=== PATIENT | female | born 1975 | race Caucasian/White ===

== ENCOUNTER → 2021-04-11 | Outpatient (CLI) | payer BC ==
--- NOTE | 2021-04-12 09:27 | US ---
EXAMINATION TYPE: US thyroid st tissue head/neck DATE OF EXAM: 04/11/2021 COMPARISON: NONE CLINICAL HISTORY: E04.1 Nontoxic single thyroid nodule. nodule seen on MRI, normal labs, not on meds GLAND SIZE: Right Lobe: 5.5 x 1.4 x 1.9 cm Overall Parenchyma: heterogenous Left Lobe: 5.3 x 1.5 x 1.8 cm Overall Parenchyma: homogeneous Isthmus Thickness: 0.3 cm NODULES RIGHT: # of nodules measured on right: 1 1. 1.5 X 1.2 x 0.9 cm, mid, solid or almost completely solid, isoechoic nodule, which is wider than tall, with ill-defined margins, without echogenic foci. Prior size: COLOR BLENDER LEFT: # of nodules measured on left: 0 ISTHMUS: # of nodules measured in the isthmus: 0 Bilateral neck scanned, no evidence of lymphadenopathy. Slightly heterogeneous right thyroid lobe. Thyroid overall is normal in size. Poorly visualized right thyroid nodule is mildly suspicious, TR 3 lesion. IMPRESSION: As above. 2017 ACR TI-RADS LEVEL: TR-RADS 3 - Mildly Suspicious: Follow if = or > 1.5 cm, at 1, 3, and 5 years. *Highest TI-RADS level nodule reported
== END | disposition home or self-care (01) ==
LOC: RADUSWWP 16:54
PROVIDERS: ATTEND Family Medicine
DX: E04.1 Nontoxic single thyroid nodule (principal)
CPT/HCPCS: 76536

== ENCOUNTER 2021-05-13 12:34 | Day surgery (SDC) | payer BC ==
[2021-05-13 13:00] VITALS: TEMP 98.2
[2021-05-13 14:14] VITALS: BP 123/73; PULSE 69; RESP 18
--- NOTE | 2021-05-13 14:14 | US ---
EXAMINATION TYPE: US FNA first lesion DATE OF EXAM: 05/13/2021 COMPARISON: NONE HISTORY: Thyroid nodule, family history of thyroid cancer. Maximal barrier technique was utilized. After informed consent, skin overlying the lesion was locali zed with ultrasound and the overlying skin prepped and draped. Ultrasound was utilized using sterile technique. Lidocaine was used for local anesthesia. Five passes with a 25-gauge needle were made int o the right lobe thyroid nodule and aspirated specimen was submitted to cytology. Following the proc edure hemostasis achieved. No immediate complication. The patient discharged in stable condition. IMPRESSION: STATUS POST ULTRASOUND GUIDED FINE NEEDLE ASPIRATION OF THYROID NODULE, PATHOLOGY IS PEND ING. THIS PROCEDURE WAS PERFORMED BY THE UNDERSIGNED.
== END 2021-05-13 14:05 | disposition home or self-care (01) ==
LOC: RADPROMAIN 12:34
PROVIDERS: ATTEND Otolaryngology
DX: E04.1 Nontoxic single thyroid nodule (principal); Z88.5 Allergy status to narcotic agent
CPT/HCPCS: 10005; 88173; 88305

== ENCOUNTER 2021-10-31 15:41 | Emergency (ER) | payer BC ==
[2021-10-31 15:55] VITALS: RESP 18; TEMP 97.7
[2021-10-31 17:25] LABS: Basophils % (A) 0 %; Eosinophils # (A) 0.1 k/uL (0-0.7); Eosinophils % (A) 1 %; HCT 47.9 % (34.0-46.0); HGB 15.8 gm/dL (11.4-16.0); Lymphocytes # (A) 0.5 k/uL (1.0-4.8); Lymphocytes % (A) 7 %; MCH 29.5 pg (25.0-35.0); MCHC 32.9 g/dL (31.0-37.0); MCV 89.7 fL (80.0-100.0); Mean Platelet Volume 7.2; Monocytes # (A) 0.3 k/uL (0-1.0); Monocytes % (A) 4 %; Neutrophils # (A) 6.8 k/uL (1.3-7.7); Neutrophils % (A) 87 %; Platelet Count 304 k/uL (150-450); RBC 5.34 m/uL (3.80-5.40); RDW 11.9 % (11.5-15.5); WBC 7.8 k/uL (3.8-10.6)
[2021-10-31 17:35] LABS: ALT 14 U/L (4-34); AST 24 U/L (14-36); African American GFR (CKD) >90 (>60 ml/min/1.73 sqM); Albumin 3.8 g/dL (3.5-5.0); Alkaline Phosphatase 65 U/L (38-126); Anion Gap 9 mmol/L; Blood Urea Nitrogen 16 mg/dL (7-17); Calcium 8.6 mg/dL (8.4-10.2); Carbon Dioxide 18 mmol/L (22-30); Chloride 109 mmol/L (98-107); Glucose 92 mg/dL (74-99); Lipase 104 U/L (23-300); Non-African American GFR(CKD) 87 (>60 ml/min/1.73 sqM); Potassium 3.9 mmol/L (3.5-5.1); Sodium 136 mmol/L (137-145); Total Bilirubin 0.4 mg/dL (0.2-1.3); Total Protein 6.7 g/dL (6.3-8.2)
--- NOTE | 2021-10-31 17:43 | ED ---
General Adult HPI - General Chief complaint: Abdominal Pain Stated complaint: vomiting, abd pain, confusion Time Seen by Provider: 10/31/21 16:42 Source: patient Mode of arrival: ambulatory Limitations: no limitations - History of Present Illness Initial comments: Dictation was produced using farmho[employer] dictation software. please excuse any grammatical, word or spelling errors. Chief Complaint: 46 yo female presents to emergency Department with right lower quadrant abdominal pain History of Present Illness: A 46-year-old female she has no past medical history of abdominal surgery. She has no significant past medical history. She states her last 48 hours she developed nausea vomiting diarrhea and abdominal pain. She states that her symptoms began with nonbilious not bloody diarrhea. She also is experiencing midline abdominal pain at that time. Today her symptoms moved down to the right lower quadrant. She has no history of abdominal surgery. She still has her appendix. She does feel chills but denies any fevers. States that her emesis is nonbloody and nonbilious. The ROS documented in this emergency department record has been reviewed and confirmed by me. Those systems with pertinent positive or negative responses have been documented in the HPI. All other systems are other negative and/or noncontributory. PHYSICAL EXAM: General Impression: Alert and oriented x3, not in acute distress HEENT: Normocephalic atraumatic, extra-ocular movements intact, pupils equal and reactive to light bilaterally, mucous membranes moist. Cardiovascular: Heart regular rate and rhythm Chest: Able to complete full sentences, no retractions, no tachypnea Abdomen: abdomen soft, palpatory tenderness at McBurney's point, non-distended, no organomegaly Musculoskeletal: Pulses present and equal in all extremities, no peripheral edema Motor: no focal deficits noted Neurological: CN II-XII grossly intact, no focal motor or sensory deficits noted Skin: Intact with no visualized rashes Psych: Normal affect and mood ED course: 46-year-old female presents to the emergency Department with 48 hours of GI symptoms. Vital signs upon arrival shows heart rate of 122, rest of vital signs within acceptable limits. Clinical presentation concerning for acute appendicitis. Lavatory evaluation obtained. CBC unremarkable. Metabolic panel shows mild acidosis. Patient is 4+ ketones. No signs of infection. No leukocytosis. Computed tomography scan of the abdomen and pelvis shows findings to suggest enteritis. Appendix is visualized and nonacute. Patient given IV fluids and reports feeling much better. Clinical presentation likely secondary to enteritis. Patient advised to go home rest and hydrate herself. Advised follow-up with primary care doctor. - Related Data Home Medications Medication Instructions Recorded Confirmed Multivitamins, Thera [Multivitamin 1 tab PO DAILY 05/05/21 10/31/21 (formulary)] Turmeric Root Extract [Turmeric] 500 mg PO DAILY 05/05/21 10/31/21 buPROPion XL [Wellbutrin XL] 150 mg PO DAILY 10/31/21 10/31/21 Previous Rx's Medication Instructions Recorded Ondansetron Odt [Zofran Odt] 4 mg PO Q8HR PRN #12 tab 10/31/21 Allergies Allergy/AdvReac Type Severity Reaction Status Date / Time meperidine [From Demerol] Allergy Nausea & Verified 10/31/21 18:02 Vomiting Review of Systems ROS Statement: Those systems with pertinent positive or pertinent negative responses have been documented in the HPI. ROS Other: All systems not noted in ROS Statement are negative. Past Medical History Past Medical History: Osteoarthritis (OA), Thyroid Disorder Additional Past Medical History / Comment(s): thyroid nodules, arthiritis in neck and knees, chronic kidney stones History of Any Multi-Drug Resistant Organisms: None Reported Additional Past Surgical History / Comment(s): kidney stone removal Past Anesthesia/Blood Transfusion Reactions: No Reported Reaction Additional Past Anesthesia/Blood Transfusion Reaction / Comment(s): no previous blood transfusion Past Psychological History: Anxiety, Depression Smoking Status: Never smoker Past Alcohol Use History: Occasional Past Drug Use History: None Reported - Past Family History Mother Family Medical History: Cancer Additional Family Medical History / Comment(s): neuroendocrine tumor General Exam Limitations: no limitations Course Vital Signs 10/31/21 15:52 Temperature 97.7 F Pulse Rate 122 H Respiratory 18 Rate Blood Pressure 130/84 O2 Sat by Pulse 97 Oximetry Medical Decision Making - Lab Data Result diagrams: 10/31/21 17:14 10/31/21 17:14 Lab Results 10/31/21 10/31/21 10/31/21 Range/Units 17:14 17:14 17:36 WBC 7.8 (3.8-10.6) k/uL RBC 5.34 (3.80-5.40) m/uL Hgb 15.8 (11.4-16.0) gm/dL Hct 47.9 H (34.0-46.0) % MCV 89.7 (80.0-100.0) fL MCH 29.5 (25.0-35.0) pg MCHC 32.9 (31.0-37.0) g/dL RDW 11.9 (11.5-15.5) % Plt Count 304 (150-450) k/uL MPV 7.2 Neutrophils % 87 % Lymphocytes % 7 % Monocytes % 4 % Eosinophils % 1 % Basophils % 0 % Neutrophils # 6.8 (1.3-7.7) k/uL Lymphocytes # 0.5 L (1.0-4.8) k/uL Monocytes # 0.3 (0-1.0) k/uL Eosinophils # 0.1 (0-0.7) k/uL Basophils # 0.0 (0-0.2) k/uL Sodium 136 L (137-145) mmol/L Potassium 3.9 (3.5-5.1) mmol/L Chloride 109 H (98-107) mmol/L Carbon Dioxide 18 L (22-30) mmol/L Anion Gap 9 mmol/L BUN 16 (7-17) mg/dL Creatinine 0.82 (0.52-1.04) mg/dL Est GFR (CKD-EPI)AfAm >90 (>60 ml/min/1.73 sqM) Est GFR (CKD-EPI)NonAf 87 (>60 ml/min/1.73 sqM) Glucose 92 (74-99) mg/dL Calcium 8.6 (8.4-10.2) mg/dL Total Bilirubin 0.4 (0.2-1.3) mg/dL AST 24 (14-36) U/L ALT 14 (4-34) U/L Alkaline Phosphatase 65 (38-126) U/L Total Protein 6.7 (6.3-8.2) g/dL Albumin 3.8 (3.5-5.0) g/dL Lipase 104 (23-300) U/L Urine Color Urine Appearance (Clear) Urine pH (5.0-8.0) Ur Specific [place] (1.001-1.035) Urine Protein (Negative) Urine Glucose (UA) (Negative) Urine Ketones (Negative) Urine Blood (Negative) Urine Nitrite (Negative) Urine Bilirubin (Negative) Urine Urobilinogen (<2.0) mg/dL Ur Leukocyte Esterase (Negative) Urine RBC (0-5) /hpf Urine WBC (0-5) /hpf Ur Squamous Epith Cells (0-4) /hpf Urine Bacteria (None) /hpf Urine Mucus (None) /hpf Urine HCG, Qual Not Detected (Not Detectd) 10/31/21 Range/Units 17:40 WBC (3.8-10.6) k/uL RBC (3.80-5.40) m/uL Hgb (11.4-16.0) gm/dL Hct (34.0-46.0) % MCV (80.0-100.0) fL MCH (25.0-35.0) pg MCHC (31.0-37.0) g/dL RDW (11.5-15.5) % Plt Count (150-450) k/uL MPV Neutrophils % % Lymphocytes % % Monocytes % % Eosinophils % % Basophils % % Neutrophils # (1.3-7.7) k/uL Lymphocytes # (1.0-4.8) k/uL Monocytes # (0-1.0) k/uL Eosinophils # (0-0.7) k/uL Basophils # (0-0.2) k/uL Sodium (137-145) mmol/L Potassium (3.5-5.1) mmol/L Chloride (98-107) mmol/L Carbon Dioxide (22-30) mmol/L Anion Gap mmol/L BUN (7-17) mg/dL Creatinine (0.52-1.04) mg/dL Est GFR (CKD-EPI)AfAm (>60 ml/min/1.73 sqM) Est GFR (CKD-EPI)NonAf (>60 ml/min/1.73 sqM) Glucose (74-99) mg/dL Calcium (8.4-10.2) mg/dL Total Bilirubin (0.2-1.3) mg/dL AST (14-36) U/L ALT (4-34) U/L Alkaline Phosphatase (38-126) U/L Total Protein (6.3-8.2) g/dL Albumin (3.5-5.0) g/dL Lipase (23-300) U/L Urine Color Yellow Urine Appearance Clear (Clear) Urine pH 5.5 (5.0-8.0) Ur Specific [place] 1.033 (1.001-1.035) Urine Protein 1+ H (Negative) Urine Glucose (UA) Negative (Negative) Urine Ketones 4+ H (Negative) Urine Blood Negative (Negative) Urine Nitrite Negative (Negative) Urine Bilirubin 1+ H (Negative) Urine Urobilinogen 2.0 (<2.0) mg/dL Ur Leukocyte Esterase Trace H (Negative) Urine RBC 2 (0-5) /hpf Urine WBC 4 (0-5) /hpf Ur Squamous Epith Cells 4 (0-4) /hpf Urine Bacteria Occasional H (None) /hpf Urine Mucus Moderate H (None) /hpf Urine HCG, Qual (Not Detectd) Disposition Clinical Impression: Enteritis Disposition: HOME SELF-CARE Condition: Fair Instructions (If sedation given, give patient instructions): Enteritis (ED) Prescriptions: Ondansetron Odt [Zofran Odt] 4 mg PO Q8HR PRN #12 tab PRN Reason: Nausea Is patient prescribed a controlled substance at d/c from ED?: No Referrals: David Parry MD [Primary Care Provider] - 1-2 days
[2021-10-31 17:47] LABS: Appearance,Urine Clear (Clear); Bacteria,Urine Occasional /hpf; Bilirubin,Urine 1+ (Negative); Blood,Urine Negative (Negative); Color,Urine Yellow; Glucose,Urine (UA) Negative (Negative); Ketones,Urine 4+ (Negative); Leukocyte Esterase,Urine Trace (Negative); Mucus,Urine Moderate /hpf; Nitrite,Urine Negative (Negative); PH, Urine 5.5 (5.0-8.0); Protein,Urine 1+ (Negative); RBC,Urine 2 /hpf (0-5); Specific Gravity,Urine 1.033 (1.001-1.035); Squamous Epithelial Cell,Urine 4 /hpf (0-4); WBC,Urine 4 /hpf (0-5)
--- NOTE | 2021-10-31 19:12 | CT ---
EXAMINATION TYPE: CT abdomen pelvis w con CT DLP: 1188.7 mGycm, Automated exposure control for dose reduction was used. DATE OF EXAM: 10/31/2021 6:43 PM COMPARISON: None CLINICAL INDICATION:Female, 46 years old with history of Abd pain and vomiting x 2 days; Abd pain and vomiting x 2 days TECHNIQUE: Standard CT of the abdomen and pelvis following the administration of 100 cc of Isovue 3 00 IV contrast material. Coronal and sagittal reformats were performed. FINDINGS: LOWER CHEST: Unremarkable ABDOMEN LIVER: Diffusely hypoattenuating parenchyma. GALLBLADDER AND BILE DUCTS: Unremarkable. PANCREAS: Unremarkable. SPLEEN: Unremarkable. ADRENAL GLANDS: Unremarkable. KIDNEYS AND URETERS: No evidence of hydronephrosis or renal calculus. The ureters are unremarkable. Level renal cysts measuring up to 20 mm on the left and 19 mm on the right. PELVIS BLADDER: Unremarkable REPRODUCTIVE: Right hyperemic graafian follicle. ABDOMEN & PELVIS STOMACH AND BOWEL: There is enlargement of the vasa recta of the jejunum with multiple mesenteric lym ph nodes which are prominent. No evidence of bowel obstruction. Appendix is visualized and within nor mal limits. PERITONEUM: Trace fluid is seen within the pelvis, no evidence of pneumoperitoneum. VASCULATURE: No evidence of aortic aneurysm. Engorgement of the vasa recta as described above. MUSCULOSKELETAL: No acute osseous abnormalities. LYMPH NODES: No gross evidence for lymphadenopathy. Prominent lymph nodes throughout the mesentery wh ich are nonenlarged. SOFT TISSUE/ABDOMINAL WALL: Unremarkable IMPRESSION: Vasa recta engorgement prominent mesenteric lymph nodes predominantly involving the jejunum suspiciou s for underlying enteritis. No other acute process within the abdomen to explain the patient's sympto ms.
[2021-10-31] MEDS ORDERED: SODIUM CHLORIDE 0.9% 1,000 ML IV STA (19:16)
[2021-10-31] MEDS ORDERED: MORPHINE SULFATE 4 MG/ML SYRINGE IV STA (19:16)
[2021-10-31] MEDS ORDERED: KETOROLAC 15 MG/ML 1 ML VIAL IVP STA (20:00)
[2021-10-31] MEDS ORDERED: ONDANSETRON 4 MG ODT STARTER PACK 2 TAB BTL PO STA (20:36)
[2021-10-31 21:20] VITALS: BP 120/78; PULSE 88
== END 2021-10-31 21:20 | disposition home or self-care (01) ==
LOC: EC 15:41
DX: K52.9 Noninfective gastroenteritis and colitis, unspecified (principal); E87.2 Acidosis; F32.A Depression, unspecified; F41.9 Anxiety disorder, unspecified; M19.90 Unspecified osteoarthritis, unspecified site; Z79.899 Other long term (current) drug therapy; Z88.5 Allergy status to narcotic agent
CPT/HCPCS: 36415; 80053; 83690; 85025; 81001; 81025; 74177; 99284; 96374; 96361 ×2; J1885; S0119; Q9967

== ENCOUNTER → 2022-02-16 | Outpatient (CLI) | payer BC ==
--- NOTE | 2022-02-17 07:10 | US ---
EXAMINATION TYPE: US thyroid st tissue head/neck DATE OF EXAM: 02/16/2022 COMPARISON: 04/11/21 CLINICAL HISTORY: E04.1 THYROID NODULE. Thyroid nodule. FNA done, came back benign. GLAND SIZE: Right Lobe: 5.6 x 2.2 x 1.8 cm Overall Parenchyma: homogenous Left Lobe: 5.3 x 1.8 x 1.6 cm Overall Parenchyma: homogeneous Isthmus Thickness: 0.42 cm NODULES RIGHT: # of nodules measured on right: 1 1. 1.5 X 1.3 x 0.9 cm, upper mid, solid or almost completely solid, isoechoic nodule, which is wide r than tall, with ill-defined margins, without echogenic foci. Prior size: 1.5 x 1.2 x 0.9 cm LEFT: # of nodules measured on left: 0 ISTHMUS: # of nodules measured in the isthmus: 0 Bilateral neck scanned, no evidence of lymphadenopathy. IMPRESSION: 1. Stable nonspecific solid nodule right thyroid lobe. 2. Glandular enlargement
== END | disposition home or self-care (01) ==
LOC: RADUSWWP 16:50
PROVIDERS: ATTEND Otolaryngology
DX: E04.1 Nontoxic single thyroid nodule (principal)
CPT/HCPCS: 76536

== ENCOUNTER 2022-04-06 09:31 | Emergency (ER) | payer OTHER, BC ==
[2022-04-06 09:50] VITALS: RESP 18
--- NOTE | 2022-04-06 10:36 | XR ---
EXAMINATION TYPE: XR chest 2V DATE OF EXAM: 04/06/2022 COMPARISON: NONE TECHNIQUE: PA and lateral views submitted. HISTORY: Pain FINDINGS: The lungs are clear and there is no pneumothorax, pleural effusion, or focal pneumonia. IMPRESSION: 1. No acute process.
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
[2022-04-06 11:14] VITALS: BP 123/78; PULSE 80; TEMP 98
== END 2022-04-06 11:13 | disposition home or self-care (01) ==
LOC: EC 09:31
DX: R07.89 Other chest pain (principal); M79.602 Pain in left arm; M19.90 Unspecified osteoarthritis, unspecified site; E07.9 Disorder of thyroid, unspecified; Z88.6 Allergy status to analgesic agent; V89.2XXA Person injured in unspecified motor-vehicle accident, traffic, initial encounter
CPT/HCPCS: 71046; 72125; 99284; 99285

== ENCOUNTER → 2023-09-02 | Outpatient (CLI) | payer BC ==
--- NOTE | 2023-09-03 12:58 | US ---
EXAMINATION TYPE: US thyroid st tissue head/neck DATE OF EXAM: 09/02/2023 COMPARISON: 09/11/2022 CLINICAL INDICATION: Female, 48 years old with history of E04.1 NONTOXIC SINGLE THYROID NODULE; GLAND SIZE: Right Lobe: 5.8 x 1.6 x 1.9 cm Overall Parenchyma: homogeneous Left Lobe: 5.8 x 1.7 x 1.8 cm Overall Parenchyma: homogeneous Isthmus Thickness: 0.3 cm NODULES RIGHT: # of nodules measured on right: 1 1. 1.5 X 0.7 x 1.3 cm, mid, solid or almost completely solid, isoechoic TR3 nodule, which is wider than tall, with ill-defined margins, without echogenic foci. Prior size: 1.7 x 0.9 x 1.3 cm LEFT: # of nodules measured on left: 0 ISTHMUS: # of nodules measured in the isthmus: 0 Bilateral neck scanned, no evidence of lymphadenopathy. IMPRESSION: 1. Mild thyromegaly. 2. Solitary solid nodule right thyroid lobe (TR3) measures 1.5 cm versus 1.7 cm, previously. 2017 ACR TI-RADS LEVEL: TR-RADS 3 - Mildly Suspicious: Follow if > 1.5 cm, FNA if > 2.5 cm *Highest TI-RADS level nodule reported
== END | disposition home or self-care (01) ==
LOC: RADUSWWP 16:14
PROVIDERS: ATTEND Otolaryngology
DX: E04.1 Nontoxic single thyroid nodule (principal)
CPT/HCPCS: 76536

== ENCOUNTER 2023-10-20 20:25 | Emergency (ER) | payer BC ==
[2023-10-20 20:55] VITALS: TEMP 98.1
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
[2023-10-20] MEDS: KETOROLAC 15 MG/ML 1 ML VIAL IVP STA (21:31)
[2023-10-20] MEDS: SODIUM CHLORIDE 0.9% 1,000 ML IV STA (21:31)
[2023-10-20] MEDS: ONDANSETRON 4 MG/2 ML VIAL IVP STA (21:32)
[2023-10-20] MEDS: HYDROmorphone 0.5 MG/0.5 ML SYRINGE IVP STA (21:32)
[2023-10-20 21:48] LABS: Basophils % (A) 0 %; Eosinophils # (A) 0.1 k/uL (0-0.7); Eosinophils % (A) 1 %; HCT 42.3 % (34.0-46.0); HGB 13.9 gm/dL (11.4-16.0); Lymphocytes # (A) 1.5 k/uL (1.0-4.8); Lymphocytes % (A) 12 %; MCH 29.5 pg (25.0-35.0); MCV 89.4 fL (80.0-100.0); Mean Platelet Volume 7.7; Monocytes # (A) 0.3 k/uL (0-1.0); Monocytes % (A) 3 %; Neutrophils # (A) 10.6 k/uL (1.3-7.7); Neutrophils % (A) 83 %; Platelet Count 362 k/uL (150-450); RBC 4.73 m/uL (3.80-5.40); RDW 12.1 % (11.5-15.5); WBC 12.7 k/uL (3.8-10.6)
[2023-10-20 21:56] LABS: ALT 15 U/L (4-34); AST 24 U/L (14-36); African American GFR (CKD) >90 (>60 ml/min/1.73 sqM); Albumin 4.2 g/dL (3.5-5.0); Alkaline Phosphatase 81 U/L (38-126); Anion Gap 9 mmol/L; Blood Urea Nitrogen 12 mg/dL (7-17); Carbon Dioxide 20 mmol/L (22-30); Chloride 109 mmol/L (98-107); Glucose 112 mg/dL (74-99); Non-African American GFR(CKD) >90 (>60 ml/min/1.73 sqM); Potassium 4.1 mmol/L (3.5-5.1); Sodium 138 mmol/L (137-145); Total Bilirubin 0.6 mg/dL (0.2-1.3); Total Protein 6.9 g/dL (6.3-8.2)
--- NOTE | 2023-10-20 22:54 | CT ---
EXAM: CT Head Without Intravenous Contrast CLINICAL HISTORY: ITS.REASON CT Reason: NO, N/V, rhinorrhea when leaning forward TECHNIQUE: Axial computed tomography images of the head/brain without intravenous contrast. CTDI is 49.1 mGy and DLP is 1149 mGy-cm. This CT exam was performed using one or more of the following dose reduction techniques: automated exposure control, adjustment of the mA and/or kV according to patient size, and/or use of iterative reconstruction technique. COMPARISON: No relevant prior studies available. FINDINGS: No acute intracranial hemorrhage. No midline shift or mass effect. The territorial hagen-white matter differentiation is maintained throughout. The ventricles and sulci are commensurate with age. The visualized orbits appear grossly unremarkable. The calvarium is intact. The visualized paranasal sinuses and mastoid air cells are grossly clear. IMPRESSION: No acute intracranial hemorrhage, midline shift, or mass effect.
[2023-10-21 00:52] VITALS: BP 150/90; PULSE 67; RESP 16
== END 2023-10-21 00:18 | disposition home or self-care (01) ==
LOC: EC 20:25
DX: R51.9 Headache, unspecified (principal); D72.819 Decreased white blood cell count, unspecified; Z11.52 Encounter for screening for COVID-19; Z88.5 Allergy status to narcotic agent
CPT/HCPCS: 99284; 96374; 96375 ×2; 96361; 36415; 80053; 85025; 87636; 70450; J2405; J1885; J1170

== ENCOUNTER → 2024-01-25 | Outpatient (CLI) | payer BC ==
--- NOTE | 2024-02-02 08:40 | MM ---
Reason for Exam: Screening (asymptomatic). Last mammogram was performed 4 year(s) and 0 month(s) ago. Patient History: Menarche at age 14. Patient has no children. Premenopausal. Maternal aunt had breast cancer at or over age 50. Maternal grandmother had breast cancer under age 50. Last menstrual period: 01/22/2024 Risk Values: Ebony 5 year model risk: 0.9%. NCI Lifetime model risk: 10.5%. Prior Study Comparison: No prior studies available for comparison. Tissue Density: The breasts are extremely dense, which lowers the sensitivity of mammography. Findings: Analyzed By CAD. There is no suspicious group of microcalcifications or new suspicious mass in either breast. Benign calcifications. Overall Assessment: Benign, BI-RAD 2 Management: Screening Mammogram of both breasts in 1 year. . Patient should continue monthly self-breast exams. A clinical breast exam by your physician is recommended on an annual basis. This exam should not preclude additional follow-up of suspicious palpable abnormalities. Note on Ebony scores and lifetime risk: 1. A Ebony score greater than 3% is considered moderate risk. If this is the case, consider specialist referral to assess eligibility for a risk reducing agent. 2. If overall lifetime risk for the development of breast cancer is 20% or higher, the patient may qualify for future screening with alternating mammogram and breast MRI. Electronically signed and approved by: Wily Doshi M.D. Radiologis
== END | disposition home or self-care (01) ==
LOC: RADMAMWWP 08:43
PROVIDERS: ATTEND Family Medicine
DX: Z12.31 Encounter for screening mammogram for malignant neoplasm of breast (principal); R92.343 Mammographic extreme density, bilateral breasts; Z80.3 Family history of malignant neoplasm of breast
CPT/HCPCS: 77063; 77067